=== PATIENT | male | born 1985 | race Caucasian/White ===

== ENCOUNTER 2017-04-01 20:02 | Emergency (ER) | payer SELFPAY ==
[2017-04-01 20:46] VITALS: BP 143/80
--- NOTE | 2017-04-01 21:22 | ED ---
Lower Extremity - HPI Summary HPI Summary: 31 yr old male with right knee pain, onset of pain today when twisted knee on ice and then fell down on right medial knee. Pain is moderate and worse with weight bearing. he has STS that he has had ice on and it has improved some. he has no other complaints. - History of Current Complaint Chief Complaint: UCTrauma Stated Complaint: WC-RT LEG INJURY Time Seen by Provider: 04/01/17 21:02 Pain Intensity: 1 - Allergies/Home Medications Allergies/Adverse Reactions: Allergies Allergy/AdvReac Type Severity Reaction Status Date / Time No Known Allergies Allergy Verified 04/01/17 20:46 PMH/Surg Hx/FS Hx/Imm Hx Previously Healthy: Yes Infectious Disease History: No Infectious Disease History: Denies: Traveled Outside the [place] in Last 30 Days - Social History Occupation: Employed Full-time Lives: With Family Alcohol Use: Occasionally Substance Use Type: Reports: None Smoking Status (MU): Never Smoked Tobacco Review of Systems Constitutional: Negative Positive: Other - knee pain All Other Systems Reviewed And Are Negative: Yes Physical Exam Triage Information Reviewed: Yes Vital Signs On Initial Exam: Initial Vitals Temp Pulse Resp BP Pulse Ox 98.5 F 83 18 143/80 100 04/01/17 20:43 04/01/17 20:43 04/01/17 20:43 04/01/17 20:43 04/01/17 20:43 Vital Signs Reviewed: Yes Appearance: Positive: Well-Appearing, No Pain Distress Skin: Positive: Warm, Skin Color Reflects Adequate Perfusion Head/Face: Positive: Normal Head/Face Inspection Eyes: Positive: EOMI ENT: Positive: Normal ENT inspection Respiratory/Lung Sounds: Positive: Other - normal effort Cardiovascular: Positive: Pulses are Symmetrical in both Upper and Lower Extremities - dp and pt pulses symmetric Abdomen Description: Positive: Nontender Musculoskeletal: Positive: Strength/ROM Intact, Other - he has tenderness over the medial right tibia with hematoma present. Neurological: Positive: Sensory/Motor Intact, Alert, Oriented to Person Place, Time, CN Intact II-III Psychiatric: Positive: Normal - Rudy Coma Scale Best Eye Response: 4 - Spontaneous Best Motor Response: 6 - Obeys Commands Best Verbal Response: 5 - Oriented Coma Scale Total: 15 Diagnostics - Vital Signs Vital Signs Temp Pulse Resp BP Pulse Ox 04/01/17 20:43 98.5 F 83 18 143/80 100 - Laboratory Lab Statement: Any lab studies that have been ordered have been reviewed, and results considered in the medical decision making process. - Radiology right knee Xray Interpretation: Positive (See Comments) - effusion Radiology Interpretation Completed By: Radiologist Lower Extremity Course/Dx - Course Course Of Treatment: xray neg for fx. fu with ortho. knee immobilizer and crutches. - Diagnoses Provider Diagnoses: Contusion, knee, Hypertension Discharge - Discharge Plan Condition: Good Disposition: HOME Prescriptions: Ibuprofen TAB* [Motrin TAB* 600 MG] 600 mg PO Q6H PRN #20 tab PRN Reason: Pain Patient Education Materials: Knee Pain (ED), Hypertension (ED) Forms: *Work Release Referrals: Felisha ALLAN,Lincoln Carreno [Primary Care Provider] - Rehan Crowder MD [Medical Doctor] -
--- NOTE | 2017-04-01 21:41 | RAD ---
INDICATION: Right knee injury. TECHNIQUE: 4 views of the right knee were obtained. FINDINGS: The bones are normal alignment. There is a joint effusion present. No fracture is seen. Joint spaces appear maintained. IMPRESSION: JOINT EFFUSION, NO FRACTURE IS SEEN.
[2017-04-01] MEDS ORDERED: Ibuprofen TAB* 400 MG PO ONE (21:51)
== END 2017-04-01 22:03 | disposition home or self-care (01) ==
LOC: UCCORT 20:02
DX: S80.01XA Contusion of right knee, initial encounter (principal); W00.0XXA Fall on same level due to ice and snow, initial encounter; X50.1XXA Overexertion from prolonged static or awkward postures, initial encounter; Y93.9 Activity, unspecified; Y92.9 Unspecified place or not applicable; I10 Essential (primary) hypertension; Z72.89 Other problems related to lifestyle
CPT/HCPCS: 99213; G0463